=== PATIENT | male | born 2005 | race African-American/Black ===

== ENCOUNTER 2023-03-27 12:41 | Emergency (ER) | payer BC, SELFPAY ==
[2023-03-27 13:03] VITALS: BP 115/62; PULSE 56; RESP 16; TEMP 36.8; O2SAT 96; BMI 22.7
--- NOTE | 2023-03-27 13:03 | ED.MALEGU ---
HPI - Male Genitourinary General Chief complaint: General Medical Stated complaint: std testing, partner has chlamydia Time Seen by Provider: 03/27/23 13:03 Source: patient Mode of arrival: ambulatory Limitations: no limitations History of Present Illness HPI Narrative: Patient is a 18-year-old male who presents emergency department requesting testing for STI. He reports a recent new partner for which he has had intercourse in the past 3 weeks. He states he was made aware yesterday that this person is positive for chlamydia. He has not been experiencing any symptoms. He would like testing and treatment. Related Data Previous Rx's Medication Instructions Recorded doxycycline hyclate 100 mg capsule 100 mg PO BID #13 caps 03/27/23 Allergies Allergy/AdvReac Type Severity Reaction Status Date / Time No Known Allergies Allergy Verified 03/27/23 13:03 Review of Systems Review of Systems: Yes all other systems are reviewed and are negative [facility] Past Medical History Attestation statement: The following information was validated with the patient. Source: old records reviewed Onset Date is defined in the Problem List Problems that require an onset date and time if occurred within 24 hrs of arrival to the ED Aortic Dissection and Rupture; Neurologic impairment; Cardiopulmonary Arrest; Endotracheal Intubation; Insertion or Replacement of Mechanical Circulatory Assist Device Physical Exam Vital Signs: Vital Signs: Last Vital Signs Temp 98.2 F 03/27/23 13:03 Pulse 56 03/27/23 13:03 Resp 16 03/27/23 13:03 BP 115/62 03/27/23 13:03 Pulse Ox 96 03/27/23 13:03 O2 Del Method Room Air 03/27/23 13:03 BMI result Body Mass Index 22.7 Appearance: Alert.?Oriented to person, place and time. No acute distress.?Normal affect. Neck: Normal inspection.? Neck supple.?? CVS: Heart sounds normal. Normal heart rate and rhythm.? Pulses normal.?? Respiratory: No respiratory distress.? Lung sounds clear to auscultation bilaterally?? Abdomen: Soft and non-tender. Normoactive bowel sounds. Skin: Skin warm and dry.? Normal skin color.? Neuro: Moves all extremities spontaneously. Sensation intact bilaterally. Ambulates with normal steady gait. Medical Decision Making Medical Decision Making MDM Narrative: Patient is a 18-year-old male presents emergency department requesting testing for STI after recent intercourse with partner who is known to be positive for chlamydia. He is asymptomatic currently. Obtained urine testing for chlamydia and gonorrhea, treated prophylactically with ceftriaxone IM and initial dose of doxycycline in the emergency department, sent remainder prescription for doxycycline to the pharmacy. We discussed full STI panel testing including syphilis/HIV screening can be done primary care provider/[facility]. We discussed worrisome signs and symptoms that would warrant re-evaluation emergency department. All questions answered. Stable for discharge. Differential Diagnosis Differential Diagnoses: The differential diagnosis associated with the presentation includes (As noted above) Tests considered The following testing was considered but not selected: See narrative above Prescription Management I considered prescription management with: Antibiotic Discharge Plan Discharge Clinical Impression: Encounter for assessment of sexually transmitted infection exposure Patient Disposition: Home, Self-Care Instructions: Safe Sex Practices (ED), Postexposure Prophylaxis (ED) Additional Instructions: Do not have any sexual intercourse until you have completed the full 7 day treatment of antibiotics. [facility] for further STI testing such as syphilis/HIV. Should your results come back as positive today you will receive phone call from the hospital. You have been treated preventatively with antibiotics given your recent exposure. Prescriptions: New doxycycline hyclate 100 mg capsule 100 mg PO BID Qty: 13 0RF
[2023-03-27] MEDS: Doxycycline Monohydrate 100 MG CAPSULE PO (13:30)
[2023-03-27] MEDS: cefTRIAXone sodium 500 MG, Lidocaine HCl 1 % MPF 1 ML IM (13:30)
[2023-03-27 15:19] LABS: CT PCR NOT DETECTED (Not Detect.); NG PCR NOT DETECTED (Not Detect.)
== END 2023-03-27 13:55 | disposition home or self-care (01) ==
PROVIDERS: Nurse Practitioner Family; Emergency Provider Emergency Medicine
DX: Z20.2 Contact with and (suspected) exposure to infections with a predominantly sexual mode of transmission (principal)
CPT/HCPCS: 0353U; 96372; 99282; 99284; J0696